=== PATIENT | male | born 1955 | race Caucasian/White ===

== ENCOUNTER 2016-08-18 17:09 | Emergency (ER) | payer BC ==
[2016-08-28] MEDS ORDERED: ACID CONTROL150 MG PO (07:24)
[2016-08-28] MEDS ORDERED: METOPROLOL TART25 MG PO (07:26)
[2016-08-28] MEDS ORDERED: METFORMIN HCL750 MG PO (07:35)
[2016-08-28] MEDS ORDERED: MONTELUKAST SOD10 MG PO (07:36)
[2016-08-28] MEDS ORDERED: CARDURA 2MG TAB2 MG PO (07:36)
[2016-08-28] MEDS ORDERED: ASPIR 8181 MG PO (07:36)
[2016-08-28] MEDS ORDERED: AVAPRO300 MG PO (07:37)
[2016-08-28] MEDS ORDERED: FUROSEMIDE20 MG PO (07:37)
[2016-08-28] MEDS ORDERED: DILTIAZEM 24HR120 M1 PO (07:38)
[2016-08-28] MEDS ORDERED: BREO ELLIPTA 11 EACH INH (07:38)
[2016-08-28] MEDS ORDERED: PERCOCET 5-3251 EACH PO (12:51)
[2016-08-28] MEDS ORDERED: NAPROSYN500 MG PO (12:52)
[2016-08-28] MEDS ORDERED: DOSS PO (12:52)
[2016-08-28] MEDS ORDERED: PHENERGAN 12.12.5 M1 PO (12:53)
== END 2016-08-18 18:40 | disposition home or self-care (01) ==
LOC: ER1 17:09
DX: S46.201A Unspecified injury of muscle, fascia and tendon of other parts of biceps, right arm, initial encounter (principal); I10 Essential (primary) hypertension; E11.9 Type 2 diabetes mellitus without complications; J44.9 Chronic obstructive pulmonary disease, unspecified; X50.0XXA Overexertion from strenuous movement or load, initial encounter; Y92.009 Unspecified place in unspecified non-institutional (private) residence as the place of occurrence of the external cause; Z88.8 Allergy status to other drugs, medicaments and biological substances
CPT/HCPCS: 99283

== ENCOUNTER → 2016-08-21 | Outpatient (CLI) | payer BC ==
[~2016-08-21] MED LIST: ACID CONTROL150 MG PO; ASPIR 8181 MG PO; AVAPRO300 MG PO; BREO ELLIPTA 11 EACH INH; CARDURA 2MG TAB2 MG PO; DILTIAZEM 24HR120 M1 PO; DOSS PO; FUROSEMIDE20 MG PO; METFORMIN HCL750 MG PO; METOPROLOL TART25 MG PO; MONTELUKAST SOD10 MG PO; NAPROSYN500 MG PO; PERCOCET 5-3251 EACH PO; PHENERGAN 12.12.5 M1 PO
== END ==
LOC: EMI 16:24
DX: S46.212A Strain of muscle, fascia and tendon of other parts of biceps, left arm, initial encounter (principal); R60.0 Localized edema
CPT/HCPCS: 73221

== ENCOUNTER → 2016-08-21 | Outpatient (CLI) | payer BC | LOC: LAB 08:18 | DX: E11.9 Type 2 diabetes mellitus without complications (principal) | CPT/HCPCS: 36415; 83036 ==

== ENCOUNTER → 2016-08-27 | Outpatient (CLI) | payer BC ==
[2016-08-27 09:30] LABS: BUN/CREATININE RATIO 18 (0-10)
== END ==
LOC: OPSV2 08:00
PROVIDERS: Orthopaedic Surgery
DX: Z01.812 Encounter for preprocedural laboratory examination (principal); S46.211A Strain of muscle, fascia and tendon of other parts of biceps, right arm, initial encounter; Z88.8 Allergy status to other drugs, medicaments and biological substances
CPT/HCPCS: 36415; 80048; 93005

== ENCOUNTER → 2016-08-28 | Day surgery (SDC) | payer BC ==
[~2016-08-28] VITALS: Ht 188 cm; Wt 143.3 kg
== END | disposition home or self-care (01) ==
LOC: OR 06:29
PROVIDERS: Orthopaedic Surgery
PROC: 0LQ30ZZ Repair Right Upper Arm Tendon, Open Approach (ICD-10-PCS; principal; 2016-08-28 07:45)
DX: S46.211A Strain of muscle, fascia and tendon of other parts of biceps, right arm, initial encounter (principal); I10 Essential (primary) hypertension; J44.9 Chronic obstructive pulmonary disease, unspecified; E11.9 Type 2 diabetes mellitus without complications; K21.9 Gastro-esophageal reflux disease without esophagitis; Z79.82 Long term (current) use of aspirin; Z79.891 Long term (current) use of opiate analgesic; Z79.899 Other long term (current) drug therapy; Z88.8 Allergy status to other drugs, medicaments and biological substances; X50.0XXA Overexertion from strenuous movement or load, initial encounter
CPT/HCPCS: 71010; 73070; 82962; C1713; J0690; J2250; J2370; J2710; J3010; J7120

== ENCOUNTER → 2016-09-18 | Outpatient (CLI) | payer BC ==
[2016-09-18 08:23] LABS: HEMOGLOBIN 11.7 gm/dl (14.0-17.5); RED BLOOD COUNT 4.72 M/UL (4.20-5.50); WHITE BLOOD COUNT 5.4 K/UL (4.5-11.0)
[2016-09-18 08:44] LABS: BUN/CREATININE RATIO 16 (0-10)
== END ==
LOC: LAB 07:50
PROVIDERS: Family Medicine
DX: I10 Essential (primary) hypertension (principal); E01.2 Iodine-deficiency related (endemic) goiter, unspecified; E11.9 Type 2 diabetes mellitus without complications; E53.8 Deficiency of other specified B group vitamins; E55.9 Vitamin D deficiency, unspecified
CPT/HCPCS: 36415; 80048; 80061; 80076; 82607; 83036; 84443; 85025

== ENCOUNTER → 2016-10-03 | Outpatient (CLI) | payer BC | LOC: HEART 5 10-02 14:30 | DX: I49.1 Atrial premature depolarization (principal); R00.2 Palpitations ==

== ENCOUNTER → 2016-10-05 | Outpatient (CLI) | payer BC ==
[2016-10-05 08:50] LABS: HEMOGLOBIN 12.4 gm/dl (14.0-17.5); WHITE BLOOD COUNT 4.4 K/UL (4.5-11.0)
== END ==
LOC: LAB 08:19
PROVIDERS: Nurse Practitioner Family
DX: D64.9 Anemia, unspecified (principal)
CPT/HCPCS: 36415; 82728; 83540; 83550; 85025

== ENCOUNTER → 2020-07-27 | Outpatient (CLI) | payer MEDICARE ==
[~2020-07-27] MED LIST changes: +CALCIUM 600 +1 EAC7 PO; +CATAPRES 0.1MG0.1 MG PO; +CATAPRES-TTS 31 EACH TP; +FLOMAX 0.4 MG0.4 MG PO; +FLOMAX0.4 MG PO; +HYDRALAZINE HCL50 MG PO; +PERCOCET 5/325 T1 EA PO; +VITAMIN B-121000 MCG PO; +ZOFRAN ODT 4 MG4 MG GT
== END ==
LOC: HEART 5 13:08
DX: I49.9 Cardiac arrhythmia, unspecified (principal)

== ENCOUNTER → 2020-08-10 | Outpatient (CLI) | payer MEDICARE | LOC: KOH-I 13:34 | DX: Z87.891 Personal history of nicotine dependence (principal); R91.8 Other nonspecific abnormal finding of lung field; I25.10 Atherosclerotic heart disease of native coronary artery without angina pectoris | CPT/HCPCS: 71271 ==

== ENCOUNTER → 2020-10-18 | Outpatient (CLI) | payer MEDICARE | LOC: RAD 08:57 | DX: N20.1 Calculus of ureter (principal) | CPT/HCPCS: 74018 ==

== ENCOUNTER → 2020-10-28 | Outpatient (CLI) | payer MEDICARE | LOC: LAB 09:25 | DX: R30.0 Dysuria (principal) | CPT/HCPCS: 87086 ==

== ENCOUNTER → 2020-10-28 | Outpatient (CLI) | payer MEDICARE | LOC: KOH-I 15:17 | DX: R10.9 Unspecified abdominal pain (principal); K44.9 Diaphragmatic hernia without obstruction or gangrene; K76.0 Fatty (change of) liver, not elsewhere classified; N28.1 Cyst of kidney, acquired; K57.90 Diverticulosis of intestine, part unspecified, without perforation or abscess without bleeding | CPT/HCPCS: 74176 ==